=== PATIENT | female | born 1980 | race Caucasian/White ===

== ENCOUNTER 2017-02-01 09:47 | Observation (INO) | payer OTHER ==
[~2017-02-01] VITALS: Ht 162.6 cm; Wt 106.3 kg
[2017-02-01 10:00] VITALS: BP 112/77
[2017-02-01 10:15] VITALS: BP 112/77
[2017-02-01] MEDS ORDERED: ALPRAZolam 0.5 MG TABLET PO PRN (10:15)
[2017-02-01] MEDS ORDERED: NITROGLYCERIN SUBLINGUAL 0.4 MG BOTTLE OF 25. SL PRN (10:15)
[2017-02-01] MEDS ORDERED: ENOXAPARIN 30 MG/0.3 ML DISP.SYRIN. SQ SCH (10:15)
[2017-02-01 10:40] LABS: ALBUMIN 3.8 g/dL (3.4-5.0); ALBUMIN/GLOBULIN RATIO 1.2 (1.0-1.7); CALCIUM 8.8 mg/dL (8.5-10.1); CREATININE 0.7 mg/dL (0.6-1.0); GFR 93.6; POTASSIUM 3.7 mmol/L (3.5-5.1); TOTAL BILIRUBIN 0.4 mg/dL (0.2-1.0); TOTAL PROTEIN 6.9 g/dL (6.4-8.2)
[2017-02-01] MEDS ORDERED: ENOXAPARIN 40 MG/0.4 ML DISP.SYRIN. SQ SCH (11:00)
[2017-02-01] MEDS ORDERED: ASPIRIN ENTERIC COATED 81 MG TABLET.DR. PO SCH (11:00)
--- NOTE | 2017-02-01 11:08 | NUR ---
PHARMACY DOSING NOTE: SCR=0.7 CRCL 129.6 The order for Lovenox 30mg SQ daily for prophylaxis has been changed to Lovenox 40mg SQ daily per pharmacy dosing guidelines. Pharmacy will continue to monitor this patients and make adjustment to her dosage as needed. Signed: 02/01/17 at 1110 by ANDRADE ARTEAGA
[2017-02-01 11:34] LABS: BILIRUBIN,URINE NEG (NEG); CLARITY,URINE HAZY; COLOR,URINE AMBER; GLUCOSE,URINE NEG (NEG)
[2017-02-01 11:35] LABS: BACTERIA,URINE FEW /HPF (0-FEW); NITRITE,URINE NEG (NEG); SQUAMOUS EPITHELIAL CELL,UR MOD /LPF; UROBILINOGEN,URINE 0.2 mg/dL (0.2 mg/dL); WBC,URINE RARE /HPF (0-4)
--- NOTE | 2017-02-01 12:05 | EKG ---
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
[2017-02-01] MEDS ORDERED: PNV1TABL25 PO (12:30)
[2017-02-01] MEDS ORDERED: METF500T4 PO (12:30)
[2017-02-01] MEDS ORDERED: LEVO50TA5 PO (12:30)
--- NOTE | 2017-02-01 12:30 | NUR ---
Pt ambulated to unit this am from home as a direct admission to Dr. Guerra for chest pain. On arrival, pt stated that she was having midsternal chest pain, and also pain between her shoulder blades. Pt assessed and VS per flowsheet. Pt belongings checked and left with pt. Consult called to [facility] cardiology; Cydney came to see pt. Echo ordered and will await results for further plan of care. Pt eating in her room at this time. Pt notified family that she was here. Will continue to monitor.
--- NOTE | 2017-02-01 12:32 | PDOC2 ---
LURDES LEVI CRM SOLUTION ARCHITECT 02/01/17 1232: CONSULT Date of Admission DATE: 02/01/17 TIME: 12:20 Reason for Consult: This is a pleasant 36-year-old female who presented to the hospital as a direct admit for chest pain. She has a past medical history of abnormal EKG, pulmonary embolism and deep vein thrombosis in September 2013, borderline hyper cholesterolemia, insulin resistance /metabolic syndrome and obesity. Over the last 2 weeks she has been experiencing sensations of a fullness in her chest that at times will feel warm and radiate up into her jaw and cause her hands to tingle. At other times it could be a cool sensation that is not related to activity. It is associated with shortness of breath but no nausea vomiting but could be sweaty. Last week she had the sensation at work and was sent to the ER at [place] where she had serial enzymes and EKG done. After negative workup she was discharged home. She continued to experience problems and was placed on Holter monitor. Yesterday she was driving toward [facility] when she started to have pains in her back that felt more like discomfort that is sharp. She started to get the sensation in her chest and went into the fire department to have her blood pressure checked. At 1st her blood pressure was in the 160/100 range and then after she calmed down it came down to the 112/70 range. Today at work the pains were coming again along with a pressure so they asked her to be admitted for evaluation. She has been under more stress recently with taking on more at work and she has a [id number] at home single mom. She has been breast-feeding so she has not been able to take anything for anxiety. PAST MEDICAL/SURGICAL HISTORY: abnormal EKG, pulmonary embolism and deep vein thrombosis in September 2013, borderline hyper cholesterolemia, insulin resistance /metabolic syndrome and obesity. REVIEW OF SYSTEMS: review of 10 organ systems is negative except for as above SOCIAL HISTORY: Is compliant to diet regimen. Denies tobacco use. Drinks alcohol occasionally. She is a single mom living at home with her [id number] child. Family history: Her mother had bypass surgery at age 39. her sister is also having insulin resistance and started on metformin. ALLERGY: Moderate Codeine Sulfate allergy resulting in Nausea Medications: None Objective GENERAL: This is a well developed, well nourished, morbidly obese female. No apparent distress. SKIN: Warm and dry with normal skin turgor. Negative for pallor. No lesions or rashes noted. EYES: Conjunctiva are clear. Extraocular movements are intact. No xanthelasma. HEAD AND NECK: Oral mucosa is moist. There is no cyanosis. Neck is supple. Jugular venous pressure is flat. Carotid pulses are 2/2 bilaterally. No carotid bruits. There is no obvious thyromegaly. HEART: Regular rate and rhythm. Normal S1 and S2. No S3. No S4. No significant murmur. No rub. PMI is not displaced. LUNGS: Effort is good. There is symmetric expansion bilaterally. Clear to auscultation bilaterally. No wheezes. No crackles. No rhonchi. ABDOMEN: Normal active bowel sounds. Soft. Nontender. EXTREMITIES: No clubbing. No cyanosis. No edema of lower extremities. Palpable pedal pulses. MUSCULOSKELETAL: No kyphosis. No scoliosis. No localized tenderness or stiffness. Gait appears normal. NEUROLOGIC: Alert and oriented times three. Cranial nerves III-XII are grossly intact. Good motor tone and strength in the upper and lower extremities bilaterally. PSYCHOLOGIC: This is a pleasant patient with a normal affect. electrocardiogram done 02/01/2017 shows sinus rhythm with anterior T-wave inversion unchanged from previous EKG. EXERCISE NUCLEAR STRESS TEST IMPRESSION (11/03/2013) ([facility]) : 1. Normal heart rate and somewhat blunted blood pressure response to exercise. 2. There was no exercise-induced chest discomfort. 3. There were no exercise-induced arrhythmias or electrocardiogram changes. 4. The patient exhibited good exercise capacity for age. The Acosta score was 9. 5. There was normal myocardial perfusion in all segments without evidence of infarction or ischemia. 6. There was normal wall motion in all segments. 7. The calculated ejection fraction was 75%. ECHOCARDIOGRAM IMPRESSION (11/03/2013) ([facility]): 1. There is normal left ventricular chamber size and wall thickness with normal regional and global left ventricular systolic function with an estimated ejection fraction of 65%. 2. The left ventricular diastolic parameters appear normal. 3. All 4 valves are structurally and functionally normal with no significant stenosis or regurgitation. 4. The pulmonary artery pressure cannot be estimated on this study. ELECTROCARDIOGRAM (11/02/2013): Sinus rhythm wtih anterior T wave inversion. Assessment Chest pain -she has had 2 sets of negative troponins and her EKG is unchanged. Will start on trial of Protonix and discussed with pharmacy if there is a safe anti anxiety medication to use when she is . Will plan to set her up for an echo and nuclear stress test as an outpatient early next week. Abnormal ECG. plan for stress test Hyperlipidemia. her triglycerides have come in to range recently and her LDL is 110 on outside lab. Obesity, morbid. Lifestyle modification with exercise, diet and weight loss recommended. Pulmonary embolism/deep venous thrombosis. She is now off Warfarin Current Medications Current Medications Pantoprazole Sodium (Protonix) 40 mg DAILYAC PO ; Start 02/02/17 at 07:30 Aspirin (Aspirin Enteric Coated) 81 mg DAILYWBKFT PO ; Start 02/02/17 at 08:00; Stop 02/02/17 at 08:00; Status DC Nitroglycerin (Nitrostat) 0.4 mg PRN Q5MIN PRN SL CHEST PAIN; Start 02/01/17 at 10:15 Enoxaparin Sodium (Lovenox) 30 mg Q24H SQ ; Start 02/01/17 at 10:15; Stop at 11:06; Status DC Alprazolam (Xanax) 0.5 mg PRN Q8HRS PRN PO ANXIETY / AGITATION Last administered on 02/01/17 11:25; Start 02/01/17 at 10:15 Aspirin (Aspirin Enteric Coated) 81 mg DAILYWBKFT PO Last administered on 11:25; Start 02/01/17 at 11:00 Enoxaparin Sodium (Lovenox) 40 mg Q24H SQ ; Start 02/01/17 at 11:00 Allergies: Coded Allergies: Estrogens (Verified Allergy, Severe, 02/01/17) codeine (Verified Allergy, Intermediate, 02/01/17) shellfish derived (Verified Allergy, Mild, 02/01/17) VITALS Vital Signs Date Time Temp Pulse Resp B/P (MAP) Pulse Ox O2 Delivery O2 Flow Rate FiO2 02/01/17 10:15 98.7 71 18 112/77 (89) 97 Room Air Labs Laboratory Tests Test 02/01/17 10:17 02/01/17 10:55 Erythrocyte Sedimentation Rate 5 (0-25) D-Dimer (Alejandrina) < 0.19 mg/L (0.00-0.50) Sodium Level 140 mmol/L (136-145) Potassium Level 3.7 mmol/L (3.5-5.1) Chloride Level 106 mmol/L (98-107) Carbon Dioxide Level 25 mmol/L (21-32) Anion Gap 9 (6-14) Blood Urea Nitrogen 10 mg/dL (7-20) Creatinine 0.7 mg/dL (0.6-1.0) Estimated GFR (Cockcroft-Gault) 93.6 BUN/Creatinine Ratio 14 (6-20) Glucose Level 95 mg/dL (70-99) Calcium Level 8.8 mg/dL (8.5-10.1) Total Bilirubin 0.4 mg/dL (0.2-1.0) Aspartate Amino Transf (AST/SGOT) 15 U/L (15-37) Alanine Aminotransferase (ALT/SGPT) 29 U/L (14-59) Alkaline Phosphatase 55 U/L (46-116) Creatine Kinase 54 U/L (26-192) Troponin I Quantitative < 0.017 ng/mL (0-0.055) Total Protein 6.9 g/dL (6.4-8.2) Albumin 3.8 g/dL (3.4-5.0) Albumin/Globulin Ratio 1.2 (1.0-1.7) Urine Collection Type Void Urine Color Radha Urine Clarity Hazy Urine pH 6.5 Urine Specific [place] 1.015 Urine Protein Neg (NEG-TRACE) Urine Glucose (UA) Neg mg/dL (NEG) Urine Ketones (Stick) Neg mg/dL (NEG) Urine Blood Neg (NEG) Urine Nitrite Neg (NEG) Urine Bilirubin Neg (NEG) Urine Urobilinogen Dipstick 0.2 mg/dL (0.2 mg/dL) Urine Leukocyte Esterase Neg (NEG) Urine RBC 1-2 /HPF (0-2) Urine WBC Rare /HPF (0-4) Urine Squamous Epithelial Cells Mod /LPF Urine Bacteria Few /HPF (0-FEW) Urine Mucus Mod /LPF ERIC MCKENNA Jr, MD 02/01/17 1440: CONSULT Reason for Consult: Chest pain. Chief Complaint Chest pain. History of Present Illness Approximately 1 week ago she was at work and developed a tingling sensation in both hands and a burning sensation in her chest. The burning sensation radiated up into her neck. This made her feel somewhat lightheaded. She told a co-worker about the symptoms. They did an electrocardiogram in the office. She then went to [facility] Emergency Room. She had another electrocardiogram, troponin levels and a CT of the chest. She was discharged home from the emergency room. The chest burning had resolved by the time she left the hospital. Nothing was seeming to make this better or worse. She was okay for a few days but then earlier in the week developed back pain while she was driving her car. She was on her way to [place]. She stopped at a fire station and they checked her blood pressure and electrocardiogram. While she was in the fire station the back pain gradually resolved. This morning she was at work and again developed some back pain as well as the tingling in the center of her chest. She was again having burning in her chest and tingling in her hands. She denied any other associated symptoms. 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 When I saw the patient in the hospital she was still having some mild tingling in her chest. She denied any chest pain, per se. She denies any dyspnea on exertion, paroxysmal nocturnal dyspnea, orthopnea, palpitations or syncope. Sometimes her feet Feel puffy but she denies any pretibial edema. She denies any history of esophageal reflux disease. Allergies: Coded Allergies: Estrogens (Verified Allergy, Severe, 02/01/17) codeine (Verified Allergy, Intermediate, 02/01/17) shellfish derived (Verified Allergy, Mild, 02/01/17) Review of System Review of 10 organ systems is as per the history of present illness, otherwise negative. General: Alert, Oriented X3, Cooperative, No acute distress HEENT: Atraumatic, EOMI, Mucous membr. moist/pink Lungs: Clear to auscultation, Normal air movement Heart: Regular rate, Normal S1, Normal S2, No murmurs Abdomen: Normal bowel sounds, Soft, No tenderness Extremities: No clubbing, No cyanosis, No edema, Normal pulses Skin: No rashes, No breakdown, No significant lesion Neuro: Normal gait, Normal speech, Strength at 5/5 X4 ext, Normal tone, Cranial nerves 3-12 NL Psych/Mental Status: Mental status NL, Mood NL Assessment/Plan Chest pain. Exact etiology unclear. She does have an abnormal electrocardiogram but she has chronic T-wave inversions in the anterior leads. Her symptoms sound consistent with possible gastroesophageal reflux disease. I recommend we start the patient on a proton pump inhibitor. The patient can be discharged home. I will have her follow up with my office next week for a stress test and echocardiogram. She should return to the hospital if she has ongoing chest pain before the stress test. Abnormal electrocardiogram. As above, she has chronic T-wave inversion in the anterior precordial leads. She had a nuclear stress test a few years ago that was normal. Given her present chest pain, I recommend a follow-up stress test. We will perform this in our office next week as outlined above. Hypercholesterolemia. She has a history of a borderline elevated cholesterol. This will need to be followed. Morbid obesity. This will increase the patient's risk of possible future cardiac and noncardiac events. LIfestyle modification with exercise, diet and weight loss was recommended to the patient. She was counseled in this regard. If she cannot lose a significant amount weight over the next 6 months, I would consider referral to a bariatric surgical program. Problems: LUDRES LEVI APRN February 01, 2017 12:32 ERIC MCKENNA Jr, MD February 01, 2017 14:40
[2017-02-01] MEDS ORDERED: OMEP40CA5 PO (13:25)
--- NOTE | 2017-02-01 13:50 | NUR ---
Discharge Note: ALVARO GABRIEL Discharge instructions and discharge home medications reviewed with Patient and a copy given. All questions have been answered and understanding verbalized. The following instructions and handouts were given: education regarding omeprazole, discharge instructions Discontinued lines and drains: Peripheral IV intact. Patient discharged to Home or Self Care with[facility]
[2017-02-01] MEDS ORDERED: metFORMIN 500 MG TABLET PO SCH (17:00)
[2017-02-02] MEDS ORDERED: LEVOTHYROXINE 50 MCG TABLET PO SCH (07:00)
[2017-02-02] MEDS ORDERED: PANTOPRAZOLE 40 MG TABLET. PO SCH (07:30)
[2017-02-02] MEDS ORDERED: ASPIRIN ENTERIC COATED 81 MG TABLET.DR. PO SCH (08:00)
[2017-02-02] MEDS ORDERED: PRENATAL MULTIVITAMIN TABLET. PO SCH (09:00)
== END 2017-02-01 13:45 | disposition home or self-care (01) ==
LOC: INTOOBSV 09:47 → 1 SOUTH 09:47
PROVIDERS: ADMIT Family Medicine; ATTEND Family Medicine
DX: R07.89 Other chest pain (principal); E66.01 Morbid (severe) obesity due to excess calories; E78.00 Pure hypercholesterolemia, unspecified; E78.5 Hyperlipidemia, unspecified; M54.9 Dorsalgia, unspecified; E88.81 Metabolic syndrome and other insulin resistance; Z86.711 Personal history of pulmonary embolism; Z86.718 Personal history of other venous thrombosis and embolism
CPT/HCPCS: 36415; 80053; 80061; 81001; 82550; 84484; 85379; 85651; 93005; G0378; G0379

== ENCOUNTER 2020-10-14 16:52 | Emergency (ER) | payer OTHER ==
[~2020-10-14] VITALS: Ht 162.6 cm; Wt 114.0 kg
[~2020-10-14 16:52] MED LIST: LEVO50TA5 PO; METF500T16 PO; OMEP40CA45 PO; PNV1TABL25 PO
[2020-10-14 17:00] VITALS: BP 166/82
--- NOTE | 2020-10-14 17:40 | PHYS DOC ---
Adult General Chief Complaint Chief Complaint: NAUSEA/VOMITING/DIARRHEA HPI HPI Patient is a 40-year-old female presents to the emergency department complaining of a reaction from her second COVID-19 vaccination. Patient states that she received her second COVID-19 vaccination at approximately 830 this morning to the left deltoid, brand name was JOEL however her vaccination card did not reveal a lot number associated with the vaccination. Patient states that her left deltoid is hurting, she has broken out in a redness throughout her body and skin, she feels very nervous, she feels nauseated, she has cramping all over. Patient denies shortness of breath, denies vomiting, denies abdominal pain, patient states that she does have chest pains, she rates her pain at a 3 or 4/10 pain, patient states it feels like someone is sticking needles into her chest. Patient does states she has a history of pulmonary embolus and states that this pain is nowhere near as bad as when she gets pulmonary emboli. Patient states she has not taken anything for this reaction. (RAYNE FIELDS APRN) Review of Systems Review of Systems 14 body systems of review of systems have been reviewed. See HPI for pertinent positives and negative responses, otherwise all other systems are negative, nonpertinent or noncontributory. (RAYNE FIELDS APRN) Current Medications Current Medications Patient reports taking 100 mcg levothyroxine daily, 20 mg famotidine as needed, a multivitamin daily, Pristiq daily, vitamin D 5000 units daily. (RAYNE FIELDS APRN) Allergies Allergies Allergies Coded Allergies Type Severity Reaction Last Updated Verified Estrogens Allergy Severe 02/01/17 Yes codeine Allergy Intermediate 02/01/17 Yes shellfish derived Allergy Mild 02/01/17 Yes (RAYNE FIELDS APRN) Physical Exam Physical Exam Constitutional: Well developed, well nourished, no acute distress, non-toxic appearance. [] HENT: Normocephalic, atraumatic, bilateral external ears normal, oropharynx moist, no oral exudates, nose normal. [] Eyes: PERRLA, EOMI, conjunctiva normal, no discharge. [] Neck: Normal range of motion, no tenderness, supple, no stridor. [] Cardiovascular:Heart rate regular rhythm, no murmur [] Lungs & Thorax: Bilateral breath sounds clear to auscultation [] Abdomen: Bowel sounds normal, soft, no tenderness, no masses, no pulsatile masses. [] Skin: Warm, dry, no erythema, no rash. Localized injection site reaction left deltoid area erythema with induration measuring 4 cm in diameter, no purulence, no drainage noted from area site. Patient face trunk upper extremities lower extremities erythematous without high-dose reaction. No raised rash, no skin lesions appreciated. Slapped face appearance. Back: No tenderness, no CVA tenderness. [] Extremities: No tenderness, no cyanosis, no clubbing, ROM intact, no edema. [] Neurologic: Alert and oriented X 3, normal motor function, normal sensory function, no focal deficits noted. [] Psychologic: Affect normal, judgement normal, mood normal. [] (RAYNE FIELDS APRN) Current Patient Data Lab Results Laboratory Tests Test 10/14/20 17:55 10/14/20 20:03 White Blood Count 8.3 x10^3/uL Red Blood Count 4.92 x10^6/uL Hemoglobin 15.3 g/dL Hematocrit 44.4 % Mean Corpuscular Volume 90 fL Mean Corpuscular Hemoglobin 31 pg Mean Corpuscular Hemoglobin Concent 35 g/dL Red Cell Distribution Width 12.8 % Platelet Count 240 x10^3/uL Neutrophils (%) (Auto) 78 % Lymphocytes (%) (Auto) 14 % Monocytes (%) (Auto) 7 % Eosinophils (%) (Auto) 1 % Basophils (%) (Auto) 0 % Neutrophils # (Auto) 6.4 x10^3uL Lymphocytes # (Auto) 1.2 x10^3/uL Monocytes # (Auto) 0.6 x10^3/uL Eosinophils # (Auto) 0.1 x10^3/uL Basophils # (Auto) 0.0 x10^3/uL Sodium Level 135 mmol/L Potassium Level 4.1 mmol/L Chloride Level 100 mmol/L Carbon Dioxide Level 22 mmol/L Anion Gap 13 Blood Urea Nitrogen 8 mg/dL Creatinine 0.8 mg/dL Estimated GFR (Cockcroft-Gault) 78.7 BUN/Creatinine Ratio 10 Glucose Level 97 mg/dL Calcium Level 9.4 mg/dL Phosphorus Level 4.5 mg/dL Magnesium Level 1.7 mg/dL Total Bilirubin 0.6 mg/dL Aspartate Amino Transf (AST/SGOT) 34 U/L Alanine Aminotransferase (ALT/SGPT) 51 U/L Alkaline Phosphatase 61 U/L Troponin I Quantitative < 0.017 ng/mL Total Protein 7.5 g/dL Albumin 4.0 g/dL Albumin/Globulin Ratio 1.1 D-Dimer (Alejandrina) 0.34 mg/L Current Medications Medications (Trade) Dose Ordered Sig/Shannon Route PRN Reason Start Time Stop Time Status Last Admin Dose Admin Ondansetron HCl (Zofran) 4 mg 1X ONCE IVP 10/14/20 17:45 10/14/20 17:50 DC 10/14/20 18:09 Diphenhydramine HCl (Benadryl) 50 mg 1X ONCE IVP 10/14/20 17:45 10/14/20 17:50 DC 10/14/20 18:09 Sodium Chloride 1,000 ml @ 1,000 mls/hr 1X ONCE IV 10/14/20 17:45 10/14/20 18:44 DC 10/14/20 18:09 Famotidine (Pepcid Vial) 40 mg 1X ONCE IVP 10/14/20 17:45 10/14/20 17:50 DC 10/14/20 18:10 Fentanyl Citrate (Fentanyl 2ml Vial) 75 mcg 1X ONCE IVP 10/14/20 17:45 10/14/20 17:50 DC 10/14/20 18:10 Acetaminophen (Tylenol) 1,000 mg 1X ONCE PO 10/14/20 17:45 10/14/20 17:50 DC 10/14/20 18:09 (RAYNE FIELDS APRN) EKG EKG EKG performed at 1753 by house respiratory therapy staff, shows a normal sinus rhythm without ectopy, heart rate 89, AR interval 0.140, QTc interval 0.410, no acute STEMI, no ACS, no acute ischemia appreciated, EKG interpreted by ED attending physician Dr. Valentin. (RAYNE FIELDS APRN) Radiology/Procedures Radiology/Procedures SEX: F EXAM STATUS: REG ER ORD. PHYSICIAN: RAYNE FIELDS APRN REASON: CHEST PAIN, POST 2ND COVID VACCINATION, FEVER, REACTION PROCEDURE: CHEST PA & LATERAL INDICATION: Reason: CHEST PAIN, POST 2ND COVID VACCINATION, FEVER, REACTION / Spl. Instructions: / History: COMPARISON: None. FINDINGS: 2 view of chest obtained. Hypoexpanded exam without a definite focal consolidation. Cardiac silhouette is unremarkable. IMPRESSION: * No focal airspace consolidation or edema. Electronically signed by: Mary Odell MD (10/14/2020 6:20 PM) [id number] DICTATED AND SIGNED BY: MARY ODELL MD DATE: 10/14/201818 CC: RAYNE FIELDS APRN; HARRY SALAZAR MD; EMERGENCY,DEPARTMENT ~MTH0 0 (RAYNE FIELDS APRN) Heart Score HEART Score for Chest Pain: HEART Score for Chest Pain Response (Comments) Value History Slighlty/Non-Suspicious 0 ECG Normal 0 Age < 45 0 Risk Factors 1 or 2 Risk Factors 1 Total 1 Risk Factors: Risk Factors: DM, Current or recent (<one month) smoker, HTN, HLP, family history of CAD, obesity. Risk Scores: Risk Factors: DM, Current or recent (<one month) smoker, HTN, HLP, family history of CAD, obesity. (RAYNE FIELDS APRN) Course & Med Decision Making Course & Med Decision Making Pertinent Labs and Imaging studies reviewed. (See chart for details) 40-year-old female, vital signs reviewed, complains of a reaction to her COVID- 19 virus vaccination. Patient's physical examination revealed local reaction at injection site of left deltoid, face trunk upper and lower extremities e rythematous, patient's face had slapped face appearance consistent with vaccination reaction. ED plan related to patient's complaint of chest pain and history of pulmonary emboli, a chest x-ray, EKG, and D-dimer along with CBC CMP, troponinI was drawn in the ED, saline lock, 1 L normal saline, 40 mg IV Pepcid, 50 mg IV Benadryl, 4 mg IV Zofran. Upon reexamination of the patient, all symptoms have resolved except for a mild pain of left deltoid at injection site. The patient's D-dimer was negative ruling out pulmonary emboli, patient's EKG was within normal limits, patient's serum labs were within normal limits. This is unlikely a cardiopulmonary event, this is unlikely an acute allergic reaction, this is most likely an expected reaction to the COVID-19 virus vaccination. The patient's heart score equals 1 Discussed findings with patient, patient gave verbal understanding of va ccination reaction education, patient gave verbal understanding of discharge home instructions, follow-up with primary care as needed, return to ER precautions or concerns, patient no further questions or concerns discharged home. (RAYNE FIELDS APRN) Dragon Disclaimer Dragon Disclaimer This electronic medical record was generated, in whole or in part, using a voice recognition dictation system. (RAYNE FIELDS APRN) Departure Departure: Impression: Primary Impression: Immunization reaction Disposition: 01 DC HOME SELF CARE/HOMELESS Condition: IMPROVED Referrals: HARRY SALAZAR MD (PCP) Additional Instructions: You have been evaluated for your reaction to the COVID-19 vaccination. Your reaction has resolved with intravenous Benadryl and Pepcid. If your reaction returns, you may take more [id number] p.o. Benadryl and p.o. Pepcid. Please return to the emergency department for worsening symptoms or other concerns. EMERGENCY DEPARTMENT GENERAL DISCHARGE INSTRUCTIONS Thank you for coming to [facility] (ED) today and trusting us with you care. We trust that you had a positivie experience in our Emergency Department. If you wish to speak to the department management, you may call the director at [phone]. YOUR FOLLOW UP INSTRUCTIONS ARE FOLLOWS: 1. Do you have a private Doctor? If you do not have a private doctor, please ask for a resource list of physicians or clinics that may be able to assist you with follow up care. 2. The Emergency Physician has interpreted your x-rays. The X-Ray specialist will also review them. If there is a change in the findings, you will be notified in 48 hours when at all possible. 3. A lab test or culture has been done, your results will be reviewed and you will be notified if you need a change in treatment. ADDITIONAL INSTRUCTIONS AND INFORMATION: 1. Your care today has been supervised by a physician who is specially trained in emergency care. Many problems require more than one evaluation for a complete diagnosis and treatment. We recommend that you schedule your follow up appointment as recommended to ensure complete treatment of you illness or injury. If you are unable to obtain follow up care and continue to have a problem, or if your condition worsens, we recommend that you return to the ED. 2. We are not able to safely determine your condition over the phone nor are we able to give sound medical advice over the phone. For these safety reasons, if you call for medical advice we will ask you to come to the ED for further evaluation. 3. If you have any questions regarding these discharge instructions please call the ED at [phone]. SAFETY INFORMATION: In the interest of safety, wellness, and injury prevention; we encourage you to wear your sealbelt, if you smoke; quite smoking, and we encourage family to use a protective helmet for bicycling and other sporting events that present an increased risk for head injury. IF YOUR SYMPTOMS WORSEN OR NEW SYMPTOMS DEVELOP, OR YOU HAVE CONCERNS ABOUT YOUR CONDITION; OR IF YOUR CONDITION WORSENS WHILE YOU ARE WAITING FOR YOUR FOLLOW UP APPOINTMENT; EITHER CONTACT YOUR PRIMARY CARE DOCTOR, THE PHYSICIAN WHOSE NAME AND NUMBER YOU WERE GIVEN, OR RETURN TO THE ED IMMEDIATELY. Attending Co-Sign Attending Co-Sign The patient was seen and interviewed as well as examined at the bedside. The chart was reviewed. The case was discussed. Agree with the plan of care. (MARINA SCHOFIELD MD) Problem Qualifiers Primary Impression: Immunization reaction Encounter type: initial encounter Qualified Codes: T50.Z95A - Adverse effect of other vaccines and biological substances, initial encounter RAYNE FIELDS APRN Oct 14, 2020 17:40 MARINA SCHOFIELD MD Oct 16, 2020 23:49
[2020-10-14] MEDS ORDERED: diphenhydrAMINE 50 MG/ML VIAL IVP ONE (17:45)
[2020-10-14] MEDS ORDERED: IV NORMAL SALINE 1,000ML 1,000 ML IV ONE (17:45)
[2020-10-14] MEDS ORDERED: ONDANSETRON PF 4 MG/2 ML VIAL. IVP ONE (17:45)
[2020-10-14] MEDS ORDERED: ACETAMINOPHEN 500 MG TABLET PO ONE (17:45)
[2020-10-14] MEDS ORDERED: FAMOTIDINE 20 MG/2 ML VIAL IVP ONE (17:45)
[2020-10-14 18:07] LABS: BASO % 0 % (0-3); EOS # 0.1 x10^3/uL (0.0-0.7); EOS % 1 % (0-3); HEMATOCRIT 44.4 % (36.0-47.0); HEMOGLOBIN 15.3 g/dL (12.0-15.5); LYMPH # 1.2 x10^3/uL (1.0-4.8); LYMPH % 14 % (24-48); MEAN CORPUSCULAR HEMOGLOBIN 31 pg (25-35); MEAN CORPUSCULAR HGB CONC 35 g/dL (31-37); MEAN CORPUSCULAR VOLUME 90 fL (79-100); MONO # 0.6 x10^3/uL (0.0-1.1); MONO % 7 % (0-9); NEUT # 6.4 x10^3uL (1.8-7.7); NEUT % 78 % (31-73); PLATELET COUNT 240 x10^3/uL (140-400); RED BLOOD COUNT 4.92 x10^6/uL (3.50-5.40); RED CELL DISTRIBUTION WIDTH 12.8 % (11.5-14.5); WHITE BLOOD COUNT 8.3 x10^3/uL (4.0-11.0)
--- NOTE | 2020-10-14 18:10 | EKG ---
[address] [address] Test Date: 2020-10-14 Test Time: 17:53:02 Pat Name: ALVARO GABRIEL Department: Room: Gender: F [employer]: FERMIN : 1980 Requested By: RAYNE FIELDS Order Number: [id number] Reading MD: Measurements Intervals [place] Rate: 98 P: 21 AR: 140 QRS: 16 QRSD: 86 T: 24 QT: 320 QTc: 410 Interpretive Statements SINUS RHYTHM T ABNORMALITY IN ANTERIOR LEADS ABNORMAL ECG RI6.02 No previous ECG available for comparison
--- NOTE | 2020-10-14 18:22 | RAD ---
INDICATION: Reason: CHEST PAIN, POST 2ND COVID VACCINATION, FEVER, REACTION / Spl. Instructions: / H istory: COMPARISON: None. FINDINGS: 2 view of chest obtained. Hypoexpanded exam without a definite focal consolidation. Cardiac silhouette is unremarkable. IMPRESSION: * No focal airspace consolidation or edema. Electronically signed by: Jose Jeffrey MD (10/14/2020 6:20 PM) [id number]
[2020-10-14 18:27] LABS: ALBUMIN/GLOBULIN RATIO 1.1 (1.0-1.7); CALCIUM 9.4 mg/dL (8.5-10.1); CREATININE 0.8 mg/dL (0.6-1.0); GFR 78.7; MAGNESIUM 1.7 mg/dL (1.8-2.4); PHOSPHORUS 4.5 mg/dL (2.6-4.7); POTASSIUM 4.1 mmol/L (3.5-5.1); TOTAL BILIRUBIN 0.6 mg/dL (0.2-1.0); TOTAL PROTEIN 7.5 g/dL (6.4-8.2)
== END 2020-10-14 21:40 | disposition home or self-care (01) ==
LOC: ER 16:52
DX: T88.0XXA Infection following immunization, initial encounter (principal); L03.818 Cellulitis of other sites; R07.89 Other chest pain; R11.0 Nausea; Z88.5 Allergy status to narcotic agent; Z91.013 Allergy to seafood; Z88.8 Allergy status to other drugs, medicaments and biological substances
CPT/HCPCS: 36415; 71046; 80053; 83735; 84100; 84484; 85025; 85379; 93005; 96361; 96374; 96375; 99285; J1200; J2405; J3010; J3490; J7030